=== PATIENT | male | born 1995 | race American Indian/Alaskan Native ===

== ENCOUNTER 2021-04-02 10:24 | Emergency (ER) | payer SELFPAY ==
[2021-04-02] MEDS ORDERED: NAPROXEN 500 MG TAB PO ONE (11:32)
[2021-04-02] MEDS ORDERED: ACETAMINOPHEN 500 MG TAB PO ONE (11:32)
--- NOTE | 2021-04-02 11:34 | Emergency Department Report ---
ED General Adult HPI - General Chief complaint: Abdominal Pain Stated complaint: ABD PAIN Time Seen by Provider: 04/02/21 10:50 Source: patient Mode of arrival: Ambulatory Limitations: No Limitations - History of Present Illness Initial comments: 26-year-old male patient presents to the emergency department complaints of left inguinal pain intermittently for approximately 2 weeks. No preceding fall, trauma, or injury. Patient states the pain occasionally radiates to his left testicle. He has no known history of a hernia. He has not taken any medi cations for pain. No history of prior abdominal/pelvic surgeries. Denies fever, chills, nausea, vomiting, diarrhea, constipation, rectal bleeding, melena, urinary symptoms, rash. Denies all other complaints at this time. Severity scale (0 -10): 7 - Related Data Allergies Allergy/AdvReac Type Severity Reaction Status Date / Time No Known Allergies Allergy Verified 04/02/21 11:39 ED Review of Systems ROS: Stated complaint: ABD PAIN Other details as noted in HPI Other: GENERAL: Negative for fever, chills, weight change, anorexia, fatigue. ENT: Negative for ear pain, difficulty hearing, sore throat, nasal congestion, epistaxis. CARDIOVASCULAR: Negative for chest pain, palpitations, lower extremity swelling. PULMONARY: Negative for cough, dyspnea, wheezing, orthopnea, cyanosis. GASTROINTESTINAL: Positive for left groin pain. GENITOURINARY: Positive for testicular pain. MUSCULOSKELETAL: Negative for joint pain, joint swelling, myalgias, back pain, neck pain. NEUROLOGICAL: Negative for headache, seizure, syncope, paresthesias, weakness. INTEGUMENTARY: Negative for erythema, rash, diaphoresis, laceration, ecchymosis. HEMATOLOGICAL: Negative for hemoptysis, hematemesis, hematochezia, hematuria. PSYCHIATRIC: Negative for hallucinations, suicidal ideation, homicidal ideation, anxiety, depression. ED Past Medical Hx - Past Medical History Previous Medical History?: No - Surgical History Past Surgical History?: No ED Physical Exam - General Limitations: No Limitations - Other Other exam information: General: Awake and alert. No acute distress. Head: Atraumatic, normocephalic. Eyes: EOMI. Pupils are equal and round. Normal sclera and conjunctiva. ENT: Oral mucosa is moist. Normal pharyngeal exam. Neck: Supple. No lymphadenopathy. Pulmonary: No respiratory distress. Clear to auscultation bilaterally. Cardiac: Regular rate and rhythm. Pulses are palpable and equal bilaterally. No lower extremity cyanosis or edema. Skin: Warm and dry. No rashes. Abdomen: Soft, non-tender, non-protuberant. No guarding, rigidity, or rebound. Bowel sounds are normal. No organomegaly or masses noted. 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 Normal external inspection. Tenderness to palpation along the left inguinal area with minimal protrusion noted when asked to perform Valsalva maneuver. No scrotal edema or tenderness. No testicular asymmetry. No regional lymphadenopathy. No rashes or lesions. Back: Normal alignment. No CVA tenderness. Extremities: Symmetrical. Full range of motion intact. Neurological: Alert and oriented, appropriately interactive, no focal deficits. Psych: Cooperative. Appropriate mood and affect. Speech is evenly metered. Thoughts are logically construed. ED Course Vital Signs 04/02/21 10:28 Temperature 98.2 F Pulse Rate 78 Respiratory 18 Rate Blood Pressure 118/77 [Right] O2 Sat by Pulse 100 Oximetry ED Medical Decision Making - Lab Data Result diagrams: 04/02/21 13:56 04/02/21 13:56 - Radiology Data [facility] [address] [place] [address] Ultrasound Report Signed Patient: RENETTA LIZAMA MR#: [id number] : 1995 Acct:[id number] Age/Sex: 26 / M ADM Date: 04/02/21 Loc: ED Attending Dr: Ordering Physician: JOSE COULTER Date of Service: 04/02/21 Procedure(s): US testicular doppler comp Accession Number(s): [id number] cc: JOSE COULTER ULTRASOUND SCROTUM INDICATION / CLINICAL INFORMATION: left groin/testicular pain. COMPARISON: None available. FINDINGS -- RIGHT TESTIS: Size = 4.8 x 2.1 x 3.1 cm. - Appearance: No significant abnormality. - Cyst or Mass: None. - Color Doppler Flow: No significant abnormality. EPIDIDYMIS: Small 3 mm simple epididymal head cyst. HYDROCELE: None. VARICOCELE: None demonstrated. FINDINGS -- LEFT TESTIS: Size = 4.3 x 1.9 x 3.6 cm. - Appearance: No significant abnormality. - Cyst or Mass: None. - Color Doppler Flow: No significant abnormality. EPIDIDYMIS: No significant abnormality. HYDROCELE: None. VARICOCELE: None demonstrated. ADDITIONAL FINDINGS: Left inguinal hernia with 1.5 cm fascial defect. There is protrusion of fat without definite involvement of bowel. IMPRESSION: 1. Left inguinal hernia with 1.5 cm fascial defect. No definite involvement of bowel however CT may be helpful for further characterization. Signer Name: Dayron Mon MD Signed: 04/02/2021 12:38 PM Workstation Name: [id number] Transcribed By: Dictated By: DAYRON MON Electronically Authenticated By: DAYRON MON Signed Date/Time: 04/02/21 1238 DD/ 1234 TD/TT: [facility] [address] [place] [address] Cat Scan Report Signed Patient: RENTETA LIZAMA MR#: [id number] : 1995 Acct:[id number] Age/Sex: 26 / M ADM Date: 04/02/21 Loc: ED Attending Dr: Ordering Physician: JOSE COULTER Date of Service: 04/02/21 Procedure(s): CT abdomen pelvis w con Accession Number(s): [id number] cc: JOSE COULTER CT ABDOMEN AND PELVIS WITH CONTRAST HISTORY: Left inguinal hernia COMPARISON: None TECHNIQUE: Routine abdominal and pelvic CT exam performed following i ntravenous contrast administration.. All CT scans at this location are performed using CT dose redu ction for [facility] by means of automated exposure control. FINDINGS: CT ABDOMEN: Lung Bases: No significant abnormality. Liver: No significant abnormality. Biliary: No significant abnormality. Spleen: No significant abnormality. Unenlarged. Pancreas: No significant abnormality. Adrenals: No significant abnormality. Kidneys: No significant abnormality. Lymphatics: No lymphadenopathy. Vasculature: No significant abnormality. Bowel/Peritoneum: No significant abnormality. No free air. No free fluid. Normal appendix. CT PELVIC: : No significant abnormality. Lymphatics: No lymphadenopathy. Osseous Structures: No aggressive appearing osseous lesions. Additional Findings: None IMPRESSION: 1. No appreciable inguinal hernia. No findings to explain the patient's symptoms. Signer Name: Fran Sneed MD Signed: 04/02/2021 3:35 PM Workstation Name: [id number] Transcribed By: JOHN Dictated By: Fran Sneed MD Electronically Authenticated By: Fran Sneed MD Signed Date/Time: 04/02/211534 DD/ 33 TD/TT: - Medical Decision Making Differential diagnosis including but not limited to: incarcerated hernia, strangulated hernia, testicular torsion, epididymitis, hydrocele, lymphangitis On reevaluation, patient remains stable. Repeat abdominal exam is benign. Labs are unremarkable. Urinalysis is within normal limits. Testicular ultrasound shows left inguinal hernia with 1.[address] of the abdomen/pelvis recommended for further characterization; obtained per radiologist's recommendation, no acute process identified. No clinical indication for further diagnostic work-up and/or emergent surgical consultation. Patient is afebrile, hemodynamically stable, tolerating oral intake without difficulty. Patient will be discharged home with referral to general surgery for close outpatient follow-up. Emphasized importance of refraining from strenuous activity and heavy lifting until otherwise instructed by general surgeon. Patient expressed understanding and is agreeable to plan of care. Dietary modifications discussed. Strict return precautions provided. Repeat exam is unremarkable and benign. History, exam, diagnostic testing, and current condition do not suggest worrisome pathology to warrant further testing, continued ED treatment, admission, or surgical evaluation at this point. Given the low probability of a significant medical illness, it would be more likely to result in harm than benefit to perform further testing at this stage. Discussed findings, presumptive diagnosis, need for follow-up and specific signs/symptoms that should prompt immediate return to the emergency department. Instructions were explained in detail to the patient in addition to giving written discharge information. Patient expressed understanding and was given the opportunity to ask questions, all of which were satisfactorily answered prior to discharge home. Critical care attestation.: If time is entered above; I have spent that time in minutes in the direct care of this critically ill patient, excluding procedure time. ED Disposition Clinical Impression: Left inguinal hernia Disposition: DC-01 TO HOME OR SELFCARE Is pt being admited?: No Does the pt Need Aspirin: No Condition: Stable Instructions: High-Fiber Diet, Hernia, Adult, [id number] Additional Instructions: Take Tylenol every 4 hours and Motrin every 8 hours as needed for pain. Increase your dietary fiber intake. Avoid strenuous physical activity and heavy lifting until otherwise instructed by general surgery. Follow-up with Dr. Lowery, general surgery, this week. Call today to schedule an appointment. See referral information below. Return to the emergency department immediately for new or worsening symptoms. Specifically, return to the emergency department immediately for fever, worsening pain, vomiting, constipation, or any other concerns. Referrals: REBECCA LOWERY DO [Staff Physician] - 3-5 Days Forms: Work/School Release Form(ED) Time of Disposition: 15:53
[2021-04-02 12:49] LABS: Bilirubin,Urine NEG (Negative); Blood,Urine NEG (Negative); Color,Urine Straw (Yellow); Protein,Urine <15 mg/dL mg/dL (Negative); Urobilinogen,Urine < 2.0 mg/dL (<2.0)
--- NOTE | 2021-04-02 12:50 | Ultrasound Report ---
ULTRASOUND SCROTUM INDICATION / CLINICAL INFORMATION: left groin/testicular pain. COMPARISON: None available. FINDINGS -- RIGHT TESTIS: Size = 4.8 x 2.1 x 3.1 cm. - Appearance: No significant abnormality. - Cyst or Mass: None. - Color Doppler Flow: No significant abnormality. EPIDIDYMIS: Small 3 mm simple epididymal head cyst. HYDROCELE: None. VARICOCELE: None demonstrated. FINDINGS -- LEFT TESTIS: Size = 4.3 x 1.9 x 3.6 cm. - Appearance: No significant abnormality. - Cyst or Mass: None. - Color Doppler Flow: No significant abnormality. EPIDIDYMIS: No significant abnormality. HYDROCELE: None. VARICOCELE: None demonstrated. ADDITIONAL FINDINGS: Left inguinal hernia with 1.5 cm fascial defect. There is protrusion of fat with out definite involvement of bowel. IMPRESSION: 1. Left inguinal hernia with 1.5 cm fascial defect. No definite involvement of bowel however CT may b e helpful for further characterization. Signer Name: Dayron Schwartz MD Signed: 04/02/2021 12:38 PM Workstation Name: [id number]
[2021-04-02 14:31] LABS: Basophils % (Auto) 0.5 % (0.0-1.8); Eosinophils # (Auto) 0.1 K/mm3 (0.0-0.4); Eosinophils % (Auto) 1.7 % (0.0-4.3); Hematocrit 43.3 % (35.5-45.6); Hemoglobin 14.8 gm/dl (11.8-15.2); Lymphocytes # (Auto) 3.4 K/mm3 (1.2-5.4); Lymphocytes % (Auto) 44.8 % (13.4-35.0); Mean Corpuscular HGB Conc 34 % (32-34); Mean Corpuscular Volume 88 fl (84-94); Monocytes # (Auto) 0.7 K/mm3 (0.0-0.8); Monocytes % (Auto) 9.7 % (0.0-7.3); Platelet Count 288 K/mm3 (140-440); Red Blood Count 4.93 M/mm3 (3.65-5.03)
[2021-04-02 14:37] LABS: BUN/Creatinine Ratio 7; Blood Urea Nitrogen 6 mg/dL (9-20); Calcium 9.8 mg/dL (8.4-10.2); Hemolysis Index 8
--- NOTE | 2021-04-02 15:39 | Cat Scan Report ---
CT ABDOMEN AND PELVIS WITH CONTRAST HISTORY: Left inguinal hernia COMPARISON: None TECHNIQUE: Routine abdominal and pelvic CT exam performed following intravenous contrast administrat ion.. All CT scans at this location are performed using CT dose reduction for [facility] by means of autom ated exposure control. FINDINGS: CT ABDOMEN: Lung Bases: No significant abnormality. Liver: No significant abnormality. Biliary: No significant abnormality. Spleen: No significant abnormality. Unenlarged. Pancreas: No significant abnormality. Adrenals: No significant abnormality. Kidneys: No significant abnormality. Lymphatics: No lymphadenopathy. Vasculature: No significant abnormality. Bowel/Peritoneum: No significant abnormality. No free air. No free fluid. Normal appendix. CT PELVIC: : No significant abnormality. Lymphatics: No lymphadenopathy. Osseous Structures: No aggressive appearing osseous lesions. Additional Findings: None IMPRESSION: 1. No appreciable inguinal hernia. No findings to explain the patient's symptoms. Signer Name: Fran Sneed MD Signed: 04/02/2021 3:35 PM Workstation Name: [id number] [place]
[2021-04-02 15:59] VITALS: BP 117/85
== END 2021-04-02 15:59 | disposition home or self-care (01) ==
LOC: ED 10:24
DX: K40.90 Unilateral inguinal hernia, without obstruction or gangrene, not specified as recurrent (principal)
CPT/HCPCS: 36415; 74177; 80048; 81001; 85025; 93975; 99284; Q9967